=== PATIENT | female | born 1985 | race Asian ===

== ENCOUNTER 2020-06-17 10:56 | Emergency (ER) | payer SELFPAY ==
[~2020-06-17] VITALS: Ht 165.1 cm; Wt 58.1 kg
[2020-06-17 11:39] LABS: BASOPHIL % 0.3 % (0-2); PLATELET COUNT 293 x10^3mcL (130-400); RED CELL DISTRIBUTION WIDTH 13.5 % (11.5-14.5)
[2020-06-17 11:49] LABS: CALCIUM 8.9 mg/dL (8.5-10.1); CARBON DIOXIDE 27.4 mmol/L (21-32); CHLORIDE SERUM 105 mmol/L (98-107); CREATININE SERUM 0.6 mg/dL (0.6-1.0); GFR1 > 60 mL/min; GLUCOSE SERUM 96 mg/dL (74-106); POTASSIUM SERUM 3.9 mmol/L (3.5-5.1); SODIUM SERUM 139 mmol/L (136-145)
[2020-06-17 11:50] VITALS: Ht 165.1 cm; Wt 58.1 kg
[2020-06-17 11:53] LABS: ALBUMIN 3.8 g/dL (3.4-5.0); ALKALINE PHOSPHATASE 72 U/L (46-116); ALT/SGPT 16 U/L (14-59); AST/SGOT 14 U/L (15-37); BILIRUBIN TOTAL 0.4 mg/dL (0.20-1.00)
[2020-06-17 12:20] LABS: UA SPECIFIC GRAVITY 1.025 (1.005-1.035); microscopic required? YES; urine erythrocyte NEGATIVE (NEGATIVE)
[2020-06-17 12:37] LABS: AMPHETAMINE QUAL UR NONE DETECTED (See below)
[2020-06-17 23:48] VITALS: BP 99/63
== END 2020-06-17 23:48 | disposition home or self-care (01) ==
LOC: ED 10:56
PROVIDERS: Emergency Medicine
DX: S51.812A Laceration without foreign body of left forearm, initial encounter (principal); F43.20 Adjustment disorder, unspecified; Z20.828 Contact with and (suspected) exposure to other viral communicable diseases; X78.1XXA Intentional self-harm by knife, initial encounter; Y93.89 Activity, other specified; Y92.89 Other specified places as the place of occurrence of the external cause; Y99.8 Other external cause status
CPT/HCPCS: 36415; 90715; G0480; J2001; U0003

== ENCOUNTER 2020-07-01 10:03 | Emergency (ER) | payer OTHER ==
[~2020-07-01] VITALS: Ht 165.1 cm; Wt 57.6 kg
[2020-07-01 10:14] VITALS: BP 115/85; Ht 165.1 cm; Wt 57.6 kg
== END 2020-07-01 12:08 | disposition home or self-care (01) ==
LOC: ED 10:03
DX: S51.812D Laceration without foreign body of left forearm, subsequent encounter (principal); X78.1XXD Intentional self-harm by knife, subsequent encounter